=== PATIENT | male | born 1940 | race Caucasian/White ===

== ENCOUNTER 2017-07-07 14:51 | Emergency (ER) | payer OTHER ==
[2017-07-07 14:59] VITALS: O2SAT 94
[2017-07-07] MEDS ORDERED: SILVER NITRATE APPLICATOR 1 APPL TP ONE (15:12)
[2017-07-07] MEDS ORDERED: OXYMETAZOLINE 30 ML NASAL SPRAY ONE (15:12)
--- NOTE | 2017-07-07 15:15 | EDPHY ---
H & P Stated Complaint: surg for nasal polyps today at [place]/bleeding/on plavix Time Seen by Provider: 07/07/17 15:14 HPI/ROS: CHIEF COMPLAINT: Epistaxis HISTORY OF PRESENT ILLNESS: The patient presents to the ED with complaints of epistaxis which began earlier today. The patient is status post nasal polypectomy earlier this morning. He is currently on Plavix. The patient reportedly has had uncontrolled epistaxis initially from the left naris are and now bilaterally. The patient attempted to control his symptoms with with direct pressure and has not been successful. REVIEW OF SYSTEMS: A comprehensive 10 point review of systems is otherwise negative aside from elements mentioned in the history of present illness. Source: Patient Exam Limitations: No limitations - Personal History Current Tetanus/Diphtheria Vaccine: Yes - Medical/Surgical History Hx Asthma: No Hx Chronic Respiratory Disease: No Hx Diabetes: No Hx Cardiac Disease: Yes Hx Renal Disease: No Hx Cirrhosis: No Hx Alcoholism: No Hx HIV/AIDS: No Hx Splenectomy or Spleen Trauma: No Other PMH: nasal polyps/triple bypass/gout - Social History Smoking Status: Never smoked - Physical Exam Exam: General Appearance: Alert, no distress Eyes: Pupils equal and round no pallor or injection ENT, Mouth: Active arterial bleeding noted from the left naris, unable to visualize posterior source Respiratory: There are no retractions, lungs are clear to auscultation Cardiovascular: Regular rate and rhythm Gastrointestinal: Abdomen is soft and nontender, no masses, bowel sounds normal Neurological: 5/5 strength all 4 extremities Skin: Warm and dry, no rashes Musculoskeletal: Neck is supple nontender Extremities: symmetrical, full range of motion Constitutional: Initial Vital Signs Temperature (C) 36.5 C 07/07/17 14:56 Heart Rate 63 07/07/17 14:56 Respiratory Rate 18 07/07/17 14:56 Blood Pressure 175/87 H 07/07/17 14:56 O2 Sat (%) 94 07/07/17 14:56 O2 Delivery Mode Room Air Allergies/Adverse Reactions: aspirin Allergy (Verified 07/07/17 14:55) Home Medications: Medication Instructions Recorded Allopurinol 07/07/17 Atorvastatin Calcium 07/07/17 Plavix 07/07/17 Medical Decision Making Procedures: Procedure: Epistaxis control. Indication: nosebleed not controlled by direct pressure. Risks, benefits, alternatives discussed with patient and consent obtained. The left nares was anesthetized with topical cocaine. The posterior epistaxis was identified. The patient was treated with packing with a 7.5 cm anterior posterior rhino rocket. Following the procedure the patient was re-examined and the bleeding was well controlled. The patient tolerated the procedure well. The procedure was performed by myself. ED Course/Re-evaluation: The patient's epistaxis was treated with nasal packing by myself. I re-evaluated the patient at 4:00 p.m. and he is currently hemostatic. The patient will be discharged home and follow up with his Ear Nose Throat physician for a recheck in the next 2-3 days. The patient will contact his vascular ultrasound technologist to see if stopping Plavix is permissible. Differential Diagnosis: Differential diagnosis considered includes anterior epistaxis, posterior epistaxis - Data Points Medications Given: Discontinued Medications Cocaine HCl (Cocaine Hcl) 1 alejandro TP EDNOW ONE Stop: 07/07/17 16:16 Last Admin: 07/07/17 16:16 Dose: Not Given Oxymetazoline HCl (Afrin Nasal [place]) 2 sprays EACHNARE EDNOW ONE Stop: 07/07/17 16:16 Last Admin: 07/07/17 16:16 Dose: Not Given Departure - Departure Disposition: Home, Routine, Self-Care Clinical Impression: Acute posterior epistaxis Condition: Good Instructions: Nosebleed (ED) Additional Instructions: 1. Please contact your Ear Nose Throat surgeon to schedule a follow-up appointment within the next 1-4 days. 2. Please contact your vascular ultrasound technologist or primary care provider to see if you can stop Plavix while your nasal packing is in. 3. Return to the ED for any recurrent bleeding or other concerns. Referrals: BETINA HECK [Primary Care Provider] - As per Instructions
[2017-07-07] MEDS ORDERED: COCAINE HCL 4% 4 ML BTL TP ONE ×2 (15:28→16:15)
[2017-07-07] MEDS ORDERED: OXYMETAZOLINE 30 ML NASAL SPRAY EACHNARE ONE (16:15)
[2017-07-07 16:43] VITALS: BP 141/64; PULSE 80; RESP 165; TEMP 97.9
== END 2017-07-07 16:38 | disposition home or self-care (01) ==
PROC: 2Y41X5Z Packing of Nasal Region using Packing Material (ICD-10-PCS; principal; 2017-07-07)
DX: R04.0 Epistaxis (principal)